=== PATIENT | female | born 1950 | race Caucasian/White ===

== ENCOUNTER 2025-01-20 14:38 | Inpatient (IN) | payer MEDICARE, OTHER ==
[~2025-01-20] VITALS: Ht 162.6 cm; Wt 57.2 kg
[2025-01-20 14:50] VITALS: BP 132/87
[2025-01-20 15:13] LABS: *BILIRUBIN,URIN NEGATIVE (NEGATIVE); *CLARITY,URINE CLEAR (CLEAR); *KETONES,URINE 2+ (NEGATIVE); *PROTEIN,URINE NEGATIVE (NEGATIVE); *UROBILINOGEN,URINE 0.2 E.U./dl (NORMAL); LEUKOCYTE ESTERASE ,URINE TRACE (NEGATIVE); NITRITE, URINE NEGATIVE (NEGATIVE); UGLUCOSE NEGATIVE (NEGATIVE)
[2025-01-20 15:15] LABS: *BLOOD, URINE TRACE (NEGATIVE); *COLOR,URINE LIGHT YELLOW (YELLOW)
[2025-01-20 15:18] LABS: PLATELET COUNT (AUTO) 260 K/uL (179-408); RED BLOOD CELL COUNT(AUTO) 3.69 MIL/uL (3.63-4.92); RED CELL DISTRIBUTION WIDTH 13.5 % (12.3-17.7); WHITE BLOOD COUNT (AUTO) 7.3 K/uL (3.8-11.8)
[2025-01-20 15:27] LABS: *AMPHETAMINE, URINE NEGATIVE (NEGATIVE); *BARBITURATE, URINE NEGATIVE (NEGATIVE); *BENZODIAZEPINE, URINE POSITIVE (NEGATIVE); *CANNABINOID, URINE NEGATIVE (NEGATIVE); *COCCAINE, URINE NEGATIVE (NEGATIVE); *OPIATE, URINE NEGATIVE (NEGATIVE); *PHENCYCLIDINE SCREEN,URINE NEGATIVE (NEGATIVE); FENTANYL, URINE NEGATIVE (NEGATIVE)
[2025-01-20 15:28] LABS: SQUAMOUS EPITHELIAL CELL,UR FEW /HPF (NONE SEEN)
[2025-01-20 15:30] LABS: CALCIUM OXALATE CRYSTALS,UR RARE /HPF (NONE SEEN)
[2025-01-20 15:37] LABS: CREATININE 0.6 mg/dL (0.6-1.3); SODIUM SERUM 141 mmol/L (136-145); UREA NITROGEN, BLOOD 15 mg/dL (7-18)
[2025-01-20 15:43] LABS: ASPARTATE AMINOTRANSFERASE 30 U/L (15-37); TOTAL PROTEIN, SERUM 8.0 g/dL (6.4-8.2)
[2025-01-20] MEDS ORDERED: LIDO1ADH82 TP (16:32)
[2025-01-20] MEDS ORDERED: APIX5TAB PO (16:32)
[2025-01-20] MEDS ORDERED: SULF500T47 PO (16:32)
[2025-01-20] MEDS ORDERED: RIZA10TA98 PO (16:32)
[2025-01-20] MEDS ORDERED: CHOL10005 PO (16:32)
[2025-01-20] MEDS ORDERED: CARV3.122 PO (16:32)
[2025-01-20] MEDS ORDERED: ONDA4TAB5 PO (16:32)
[2025-01-20] MEDS ORDERED: THIA100T70 PO (16:32)
[2025-01-20] MEDS ORDERED: ESCI-9 PO (16:32)
[2025-01-20] MEDS ORDERED: ACET325T53 PO (16:32)
[2025-01-20] MEDS ORDERED: DOCU100T28 PO (16:32)
[2025-01-20] MEDS ORDERED: CETI-355 PO (16:32)
[2025-01-20] MEDS ORDERED: MELA5TAB PO (16:32)
[2025-01-20] MEDS ORDERED: CIPROFLOXACIN HCL 250 MG TABLET ONE (16:44)
[2025-01-20] MEDS: CIPROFLOXACIN HCL 250 MG TABLET PO ONE (16:49)
[2025-01-20] MEDS ORDERED: TEMAZEPAM 7.5 MG CAPSULE PO PRN (18:00)
[2025-01-20] MEDS ORDERED: LORAZEPAM 1 MG TABLET PO PRN (18:00)
[2025-01-20 19:15] VITALS: BP 149/53; TEMP 98.7; O2SAT 96
[2025-01-20] MEDS: TEMAZEPAM 15 MG CAPSULE PO ONE (19:45)
[2025-01-20 19:54] VITALS: BP 132/68; TEMP 98.1; O2SAT 98
[2025-01-20] MEDS ORDERED: RIZATRIPTAN BENZOATE PO PRN (20:00)
[2025-01-20] MEDS: LORAZEPAM 1 MG TABLET PO ONE (20:00)
[2025-01-20] MEDS: DOCUSATE SODIUM 100 MG CAPSULE PO SCH (21:00)
[2025-01-20] MEDS: APIXABAN 5 MG TABLET PO ONE (22:58)
[2025-01-20] MEDS: CARVEDILOL 3.125 MG TABLET PO ONE (22:58)
[2025-01-20] MEDS ORDERED: POTASSIUM CHLORIDE 20 MEQ TAB.PRT.SR ONE (23:54)
[2025-01-21] MEDS: POTASSIUM CHLORIDE 20 MEQ TAB.PRT.SR PO ONE (00:03)
[2025-01-21] MEDS: ACETAMINOPHEN 325 MG TABLET PO PRN (00:37)
[2025-01-21 08:50] LABS: ASPARTATE AMINOTRANSFERASE 28 U/L (15-37); CREATININE 0.8 mg/dL (0.6-1.3); SODIUM SERUM 141 mmol/L (136-145); TOTAL PROTEIN, SERUM 8.4 g/dL (6.4-8.2); UREA NITROGEN, BLOOD 21 mg/dL (7-18)
[2025-01-21] MEDS ORDERED: NITROFURANTOIN/NITROFURAN MAC 100 MG CAPSULE PO SCH (09:00)
[2025-01-21] MEDS ORDERED: SULFASALAZINE 500 MG TABLET PO SCH (09:00)
[2025-01-21] MEDS: CHOLECALCIFEROL 1,000 UNIT TABLET PO SCH (09:27)
[2025-01-21] MEDS: APIXABAN 5 MG TABLET PO SCH (09:27)
[2025-01-21] MEDS: THIAMINE HCL 100 MG TABLET PO SCH (09:27)
[2025-01-21] MEDS: CARVEDILOL 3.125 MG TABLET PO SCH (09:29)
[2025-01-21] MEDS ORDERED: QUETIAPINE FUMARATE 25 MG TABLET PO SCH (10:45)
[2025-01-21] MEDS: QUETIAPINE FUMARATE 25 MG TABLET PO SCH (12:00)
[2025-01-21] MEDS: SERTRALINE HCL 50 MG TABLET PO SCH (12:00)
[2025-01-21] MEDS: NITROFURANTOIN/NITROFURAN MAC 100 MG CAPSULE PO SCH (13:04)
[2025-01-21] MEDS ORDERED: RIZA5TAB18 PO (14:56)
[2025-01-21 17:11] VITALS: BP 120/51; TEMP 98.2; O2SAT 98
[2025-01-21] MEDS: SULFASALAZINE 500 MG TABLET PO SCH (17:58)
[2025-01-21 19:54] VITALS: BP 102/57; TEMP 98; O2SAT 96
[2025-01-22 08:22] VITALS: BP 104/55; TEMP 98; O2SAT 98
[2025-01-22] MEDS: ENSURE ENLIVE (VAN) 240 ML LIQUID PO SCH (09:20)
[2025-01-22] MEDS ORDERED: IBUPROFEN 600 MG TABLET PO PRN (10:45)
[2025-01-22] MEDS: ACETAMINOPHEN 500 MG TABLET PO PRN (12:32)
[2025-01-22 15:17] VITALS: BP 116/52; TEMP 98; O2SAT 98
[2025-01-22] MEDS: LORAZEPAM 2 MG/1 ML VIAL IM ONE (17:30)
[2025-01-22] MEDS: HALOPERIDOL LACTATE 5 MG/1 ML VIAL IM ONE (17:30)
[2025-01-22] MEDS: diphenhydrAMINE 50 MG/1 ML VIAL IM ONE (17:30)
[2025-01-22 20:00] VITALS: BP 100/58; TEMP 97.3; O2SAT 95
[2025-01-23 07:56] VITALS: BP 122/69; TEMP 98.2; O2SAT 99
[2025-01-23 15:19] VITALS: BP 112/62; TEMP 98; O2SAT 100
[2025-01-23] MEDS: BISMUTH SUBSALICYLATE 262 MG/15 ML UDC PO PRN (17:31)
[2025-01-23] MEDS: QUETIAPINE FUMARATE 25 MG TABLET PO SCH (19:55)
[2025-01-23 20:00] VITALS: BP 104/61; TEMP 98.5; O2SAT 97
[2025-01-24 07:45] VITALS: BP 104/49; TEMP 98; O2SAT 100
[2025-01-24 15:29] VITALS: BP 128/65; TEMP 98; O2SAT 99
[2025-01-24 20:00] VITALS: BP 106/71; TEMP 98; O2SAT 98
[2025-01-24] MEDS: DOXYCYCLINE HYCLATE 100 MG TABLET PO SCH (20:44)
[2025-01-24] MEDS: POLYVINYL ALCOHOL OPHT DROPS 15 ML BOTTLE EACHEYE PRN (20:58)
[2025-01-24] MEDS: BENZOCAINE/MENTH/CETYLPYRD LOZENGE MM PRN (22:02)
[2025-01-25 08:53] VITALS: BP_SYST 107; BP_SYST 119; BP_DIAS 56; BP_DIAS 59; TEMP 98; O2SAT 99
[2025-01-25] MEDS: APIXABAN 5 MG TABLET PO SCH (09:34)
[2025-01-25] MEDS: CARVEDILOL 3.125 MG TABLET PO SCH (09:34)
[2025-01-25 16:26] VITALS: BP 140/53; TEMP 98; O2SAT 99
[2025-01-25 19:47] VITALS: BP 141/73; TEMP 97.7; O2SAT 98
[2025-01-26 08:53] VITALS: BP 144/71; TEMP 98; O2SAT 99
[2025-01-26 16:19] VITALS: BP 140/53; TEMP 98; O2SAT 99
[2025-01-26 20:00] VITALS: BP 127/76; TEMP 98.1; O2SAT 95
[2025-01-27 08:49] VITALS: BP 108/75; TEMP 98; O2SAT 99
[2025-01-27 16:25] VITALS: BP 125/66; TEMP 98; O2SAT 99
[2025-01-27 19:52] VITALS: BP 113/56; TEMP 98.1; O2SAT 98
[2025-01-28 09:37] VITALS: BP 103/67; TEMP 97.9; O2SAT 97
[2025-01-28 16:42] VITALS: BP 117/57; TEMP 97.4; O2SAT 97
[2025-01-29 09:27] VITALS: BP 104/49; TEMP 98.2; O2SAT 99
[2025-01-29] MEDS ORDERED: diphenhydrAMINE 50 MG/1 ML VIAL IV ONE (12:45)
[2025-01-29] MEDS: HALOPERIDOL LACTATE 5 MG/1 ML VIAL IM ONE (13:37)
[2025-01-29] MEDS: LORAZEPAM 2 MG/1 ML VIAL IM ONE (13:37)
[2025-01-29] MEDS: diphenhydrAMINE 50 MG/1 ML VIAL IM ONE (13:38)
[2025-01-29 15:11] VITALS: BP 135/51; TEMP 98.2; O2SAT 99
[2025-01-29 20:00] VITALS: BP 119/51; TEMP 98.5; O2SAT 96
[2025-01-29] MEDS: QUETIAPINE FUMARATE 25 MG TABLET PO SCH (21:00)
[2025-01-30 09:27] VITALS: BP 98/57; TEMP 98; O2SAT 100
[2025-01-30 15:07] VITALS: BP 106/66; TEMP 98; O2SAT 96
[2025-01-30 19:54] VITALS: BP 114/58; TEMP 98.2; O2SAT 95
[2025-01-30] MEDS: DIVALPROEX 125 MG TABLET.DR PO SCH (20:22)
[2025-01-31 08:05] VITALS: BP 110/45; TEMP 98.8; O2SAT 96
[2025-01-31] MEDS: MAG HYDROX/AL HYDROX/SIMETH 30 ML LIQUID UDC PO PRN (13:02)
[2025-01-31 15:57] VITALS: BP 115/62; TEMP 98; O2SAT 96
[2025-01-31 20:00] VITALS: BP 130/104; TEMP 98
[2025-02-01 09:49] VITALS: BP 104/51; TEMP 98; O2SAT 100
[2025-02-01] MEDS: MAGNESIUM HYDROXIDE 30 ML LIQUID UDC PO PRN (09:52)
[2025-02-01 16:33] VITALS: BP 111/61; TEMP 98
[2025-02-01 21:01] VITALS: BP 119/54; TEMP 98.5; O2SAT 95
[2025-02-02 08:53] VITALS: BP 108/61; TEMP 98; O2SAT 100
[2025-02-02 20:00] VITALS: BP 142/69; TEMP 98.1; O2SAT 98
[2025-02-03 08:14] VITALS: BP 119/69; TEMP 98; O2SAT 100
[2025-02-03 08:37] VITALS: BP 142/69
== END 2025-02-03 15:45 | DRG 885 ==
LOC: ER 14:38 → GPS 17:21
PROVIDERS: ADMIT Psychiatry & Neurology Psychiatry; ATTEND Student in an Organized Health Care Education/Training Program
DX: F31.9 Bipolar disorder, unspecified (principal); J44.89 Other specified chronic obstructive pulmonary disease; I11.0 Hypertensive heart disease with heart failure; N39.0 Urinary tract infection, site not specified; F03.911 Unspecified dementia, unspecified severity, with agitation; E87.6 Hypokalemia; Z88.6 Allergy status to analgesic agent; Z88.0 Allergy status to penicillin; I50.9 Heart failure, unspecified; I48.91 Unspecified atrial fibrillation; E78.5 Hyperlipidemia, unspecified; D89.89 Other specified disorders involving the immune mechanism, not elsewhere classified; Z91.81 History of falling; M79.641 Pain in right hand
CPT/HCPCS: 36415; 71045; 73090; 73130; 84443; 85025; 87086; 93005; A9150; J1200; J1630; J2060